=== PATIENT | male | born 1965 | race Caucasian/White ===

== ENCOUNTER 2017-11-06 08:11 | Day surgery (SDC) | payer OTHER ==
[~2017-11-06 08:11] MED LIST: CEFAZOLIN 2 GM/50 ML (PMX) 50 ML IVPB; ROCURONIUM 50 MG INJ; SOD CHLORIDE 0.9% 1,000 ML IV
[2017-11-06 09:38] LABS: ADD MAN DIFF? NO
[2017-11-06 09:39] LABS: BASOPHIL # 0.1 10^3/ul (0.0-0.1); BASOPHILS % 0.9 % (0.0-2.0); EOSINOPHILS # 0.2 10^3/ul (0.0-0.5); EOSINOPHILS % 2.3 % (0.0-7.0); HEMATOCRIT 42.5 % (42.0-52.0); HEMOGLOBIN 14.4 g/dl (14.0-18.0); LYMPHOCYTES # 2.9 10^3/ul (0.8-2.9); LYMPHOCYTES % 41.4 % (15.0-51.0); MEAN CORPUSCULAR HEMOGLOBIN 29.7 pg (29.0-33.0); MEAN CORPUSCULAR HGB CONC 33.9 g/dl (32.0-37.0); MEAN CORPUSCULAR VOLUME 87.6 fl (82.0-101.0); MONOCYTE # 0.6 10^3/ul (0.3-0.9); NEUTROPHIL # 3.2 10^3/ul (1.6-7.5); NEUTROPHILS % 46.7 % (39.0-77.0); PLATELET COUNT 230 10^3/UL (140-415); RED BLOOD COUNT 4.85 10^6/ul (4.70-6.10); RED CELL DISTRIBUTION WIDTH 12.8 % (11.5-14.5)
[2017-11-06 09:39] LABS: WHITE BLOOD COUNT 6.9 10^3/ul (4.8-10.8)
[2017-11-06 09:58] LABS: INR 1.22; PROTIME 15.6 Sec (11.9-14.9); PT RATIO 1.2
[2017-11-06 10:02] LABS: ALANINE AMINOTRANSFERASE 90 IU/L (13-69); ALBUMIN/GLOBULIN RATIO 1.17; ALKALINE PHOSPHATASE 49 IU/L (42-121); ANION GAP 11 (8-16); ASPARTATE AMINO TRANSFERASE 35 IU/L (15-46); BILIRUBIN,INDIRECT 0.4 mg/dl (0-1.1); BILIRUBIN,TOTAL 0.4 mg/dl (0.2-1.3); BLOOD UREA NITROGEN 20 mg/dl (7-20); CALCIUM 9.2 mg/dl (8.4-10.2); CARBON DIOXIDE 29 mmol/L (21-31); CHLORIDE 104 mmol/L (97-110); CREATININE 0.67 mg/dl (0.61-1.24); GLUCOSE 99 mg/dl (70-220); PARTIAL THROMBOPLASTIN TIME 47.9 Sec (25.0-35.0); POTASSIUM 4.6 mmol/L (3.5-5.1); SODIUM 139 mmol/L (135-144); TOTAL PROTEIN 7.4 g/dl (6.1-8.1)
[2017-11-06] MEDS ORDERED: BUPIVACAINE 0.25% (MPF) 30 ML INJ (10:53)
[2017-11-06] MEDS ORDERED: MIDAZOLAM 1 MG/ML 2 ML INJ (11:05)
[2017-11-06] MEDS: POLYMYXIN/BACITRACIN 1L IRRIG (11:34)
[2017-11-06] MEDS: BUPIVACAINE 0.25% (MPF) 30 ML INJ (11:35)
[2017-11-06] MEDS ORDERED: PROPOFOL 20 ML (12:06)
[2017-11-06] MEDS ORDERED: LIDOCAINE 2% (SDV) 5 ML INJ (12:06)
[2017-11-06] MEDS ORDERED: CEFAZOLIN 1 GM INJ (12:06)
[2017-11-06] MEDS ORDERED: GLYCOPYRROLATE 0.4 MG INJ (12:07)
[2017-11-06] MEDS ORDERED: NEOSTIGMINE 3 MG/3 ML SYRINGE (12:07)
[2017-11-06] MEDS ORDERED: ONDANSETRON 4 MG INJ (12:09)
[2017-11-06] MEDS ORDERED: MEPERIDINE 25 MG INJ IV (12:30)
[2017-11-06] MEDS ORDERED: LABETALOL HCL 20MG INJ IV (12:30)
[2017-11-06] MEDS ORDERED: hydrALAzine 20 MG INJ IV (12:30)
[2017-11-06] MEDS ORDERED: DIPHENHYDRAMINE 50 MG INJ IV (12:30)
[2017-11-06] MEDS ORDERED: HYDROmorphONE 1 MG/5 ML IV SYRINGE IV (12:32)
[2017-11-06] MEDS: HYDROmorphONE 1 MG/5 ML IV SYRINGE IV ×3 (12:35→12:46)
[2017-11-06] MEDS: HYDROCODONE/APAP (5/325) TAB PO (12:51)
[2017-11-06] MEDS: ONDANSETRON 4 MG INJ IV (12:52)
[2017-11-06] MEDS: FENTAnyl 50 MCG/ML VIAL IV ×2 (12:56→13:02)
== END 2017-11-06 14:37 | disposition home or self-care (01) ==
LOC: SDS 08:11
DX: K40.91 Unilateral inguinal hernia, without obstruction or gangrene, recurrent (principal); N43.3 Hydrocele, unspecified; I10 Essential (primary) hypertension
CPT/HCPCS: 49521; 71045; 80053; 85025; 85610; 85730; 88302; 93005

== ENCOUNTER 2017-11-16 21:36 | Emergency (ER) | payer OTHER | END 2017-11-16 22:31 | disposition home or self-care (01) | LOC: FTE 21:36 | DX: Z48.01 Encounter for change or removal of surgical wound dressing (principal) | CPT/HCPCS: 99281; Z7502 ==

== ENCOUNTER 2018-05-29 01:34 | Inpatient (IN) | payer OTHER ==
[~2018-05-29 01:34] MED LIST changes: -CEFAZOLIN 2 GM/50 ML (PMX) 50 ML IVPB; -ROCURONIUM 50 MG INJ; -SOD CHLORIDE 0.9% 1,000 ML IV; +VANCOMYCIN 1 GM 250 ML IVPB
[2018-05-29] MEDS: HYDROCODONE/APAP (5/325) TAB PO ×4 (03:22→19:57)
[2018-05-29] MEDS ORDERED: NACL 0.9% 3 ML SYG IV (03:30)
[2018-05-29] MEDS ORDERED: ONDANSETRON 4 MG INJ IV (03:30)
[2018-05-29] MEDS: SOD CHLORIDE 0.9% 1,000 ML IV ×3 (03:34→17:57)
[2018-05-29 05:14] LABS: ADD MAN DIFF? NO
[2018-05-29 05:15] LABS: WHITE BLOOD COUNT 9.3 10^3/ul (4.8-10.8)
[2018-05-29 05:15] LABS: BASOPHILS % 0.4 % (0.0-2.0); EOSINOPHILS # 0.1 10^3/ul (0.0-0.5); EOSINOPHILS % 1.5 % (0.0-7.0); HEMATOCRIT 39.2 % (42.0-52.0); HEMOGLOBIN 13.1 g/dl (14.0-18.0); LYMPHOCYTES # 1.2 10^3/ul (0.8-2.9); LYMPHOCYTES % 13.1 % (15.0-51.0); MEAN CORPUSCULAR HEMOGLOBIN 28.5 pg (29.0-33.0); MEAN CORPUSCULAR HGB CONC 33.4 g/dl (32.0-37.0); MEAN CORPUSCULAR VOLUME 85.2 fl (82.0-101.0); MEAN PLATELET VOLUME 9.1 fl (7.4-10.4); MONOCYTE # 0.8 10^3/ul (0.3-0.9); MONOCYTES % 8.7 % (0.0-11.0); NEUTROPHILS % 75.8 % (39.0-77.0); PLATELET COUNT 200 10^3/UL (140-415); RED CELL DISTRIBUTION WIDTH 12.5 % (11.5-14.5)
[2018-05-29 05:51] LABS: ALANINE AMINOTRANSFERASE 16 IU/L (13-69); ALBUMIN 3.2 g/dl (3.3-4.9); ALBUMIN/GLOBULIN RATIO 1.06; ALKALINE PHOSPHATASE 69 IU/L (42-121); ANION GAP 7 (5-13); ASPARTATE AMINO TRANSFERASE 13 IU/L (15-46); BILIRUBIN,INDIRECT 0.3 mg/dl (0-1.1); BILIRUBIN,TOTAL 0.3 mg/dl (0.2-1.3); BLOOD UREA NITROGEN 19 mg/dl (7-20); CALCIUM 8.1 mg/dl (8.4-10.2); CARBON DIOXIDE 26 mmol/L (21-31); CHLORIDE 99 mmol/L (97-110); Estimated GFR > 60 mL/min (>60); GLUCOSE 169 mg/dl (70-220); MAGNESIUM 1.9 mg/dl (1.7-2.5); PHOSPHORUS 3.4 mg/dl (2.5-4.9); POTASSIUM 3.9 mmol/L (3.5-5.1); SODIUM 132 mmol/L (135-144); TOTAL PROTEIN 6.2 g/dl (6.1-8.1)
[2018-05-29] MEDS ORDERED: VANCOMYCIN IV PER PHARMACY XX (07:30)
[2018-05-29] MEDS: NICOTINE (21 MG/24 HR) PATCH TRANSDERM (08:36)
[2018-05-29] MEDS: HEPARIN 5,000 UNIT/1 ML VIAL SC ×2 (08:38→20:00)
[2018-05-29] MEDS: LISINOPRIL 10 MG TAB PO (08:38)
[2018-05-29] MEDS: CEFEPIME 1GM/50 ML (PMX) 50 ML IVPB ×2 (08:38→19:59)
[2018-05-29] MEDS: VANCOMYCIN HCL 1.5 GM in SOD CHLORIDE 0.9% 250 ML IVPB (10:16)
[2018-05-29] MEDS: ACETAMINOPHEN 325 MG TAB PO (12:13)
[2018-05-29] MEDS: VANCOMYCIN 1 GM 250 ML IVPB (23:07)
[2018-05-29] MEDS: MAGNESIUM HYDROXIDE 30ML CUP PO (23:07)
[2018-05-30] MEDS: HYDROCODONE/APAP (5/325) TAB PO ×2 (04:42→21:39)
[2018-05-30] MEDS: SOD CHLORIDE 0.9% 1,000 ML IV ×2 (05:03→17:33)
[2018-05-30 05:22] LABS: ADD MAN DIFF? NO
[2018-05-30 05:33] LABS: WHITE BLOOD COUNT 9.4 10^3/ul (4.8-10.8)
[2018-05-30 05:33] LABS: BASOPHIL # 0.1 10^3/ul (0.0-0.1); BASOPHILS % 0.7 % (0.0-2.0); EOSINOPHILS # 0.1 10^3/ul (0.0-0.5); EOSINOPHILS % 1.5 % (0.0-7.0); HEMATOCRIT 41.8 % (42.0-52.0); HEMOGLOBIN 13.7 g/dl (14.0-18.0); LYMPHOCYTES # 1.7 10^3/ul (0.8-2.9); LYMPHOCYTES % 17.7 % (15.0-51.0); MEAN CORPUSCULAR HEMOGLOBIN 28.2 pg (29.0-33.0); MEAN CORPUSCULAR HGB CONC 32.8 g/dl (32.0-37.0); MEAN PLATELET VOLUME 9.3 fl (7.4-10.4); MONOCYTES % 10.8 % (0.0-11.0); NEUTROPHIL # 6.4 10^3/ul (1.6-7.5); NEUTROPHILS % 68.4 % (39.0-77.0); PLATELET COUNT 245 10^3/UL (140-415); RED BLOOD COUNT 4.86 10^6/ul (4.70-6.10); RED CELL DISTRIBUTION WIDTH 12.9 % (11.5-14.5)
[2018-05-30 06:00] LABS: ANION GAP 7 (5-13); BLOOD UREA NITROGEN 15 mg/dl (7-20); CALCIUM 8.5 mg/dl (8.4-10.2); CARBON DIOXIDE 27 mmol/L (21-31); CHLORIDE 99 mmol/L (97-110); CREATININE 0.63 mg/dl (0.61-1.24); Estimated GFR > 60 mL/min (>60); GLUCOSE 103 mg/dl (70-220); MAGNESIUM 2.1 mg/dl (1.7-2.5); PHOSPHORUS 3.8 mg/dl (2.5-4.9); SODIUM 133 mmol/L (135-144)
[2018-05-30] MEDS: HEPARIN 5,000 UNIT/1 ML VIAL SC ×2 (08:50→21:07)
[2018-05-30] MEDS: CEFEPIME 1GM/50 ML (PMX) 50 ML IVPB ×2 (08:52→21:06)
[2018-05-30] MEDS: LISINOPRIL 10 MG TAB PO (08:52)
[2018-05-30] MEDS: NICOTINE (21 MG/24 HR) PATCH TRANSDERM (08:53)
[2018-05-30] MEDS: MAGNESIUM HYDROXIDE 30ML CUP PO (09:21)
[2018-05-30] MEDS: VANCOMYCIN 1 GM 250 ML IVPB (11:41)
[2018-05-30] MEDS: KETOROLAC 30 MG INJ IV (11:58)
[2018-05-30] MEDS: LACTULOSE 30ML CUP PO (13:21)
[2018-05-30] MEDS: DOCUSATE SODIUM 100 MG CAP PO ×2 (13:21→21:06)
[2018-05-30 23:50] LABS: VANCOMYCIN,TROUGH 5.7 ug/ml (10.0-20.0)
[2018-05-31] MEDS: VANCOMYCIN 1 GM 250 ML IVPB ×3 (00:13→18:46)
[2018-05-31 07:23] LABS: ADD MAN DIFF? NO
[2018-05-31 07:29] LABS: WHITE BLOOD COUNT 9.6 10^3/ul (4.8-10.8)
[2018-05-31 07:29] LABS: BASOPHIL # 0.1 10^3/ul (0.0-0.1); BASOPHILS % 0.6 % (0.0-2.0); EOSINOPHILS # 0.2 10^3/ul (0.0-0.5); EOSINOPHILS % 1.8 % (0.0-7.0); HEMATOCRIT 39.9 % (42.0-52.0); HEMOGLOBIN 13.2 g/dl (14.0-18.0); LYMPHOCYTES # 1.5 10^3/ul (0.8-2.9); LYMPHOCYTES % 15.2 % (15.0-51.0); MEAN CORPUSCULAR HEMOGLOBIN 28.2 pg (29.0-33.0); MEAN CORPUSCULAR HGB CONC 33.1 g/dl (32.0-37.0); MEAN CORPUSCULAR VOLUME 85.3 fl (82.0-101.0); MEAN PLATELET VOLUME 9.1 fl (7.4-10.4); MONOCYTE # 0.8 10^3/ul (0.3-0.9); MONOCYTES % 8.2 % (0.0-11.0); NEUTROPHILS % 73.1 % (39.0-77.0); PLATELET COUNT 287 10^3/UL (140-415); RED BLOOD COUNT 4.68 10^6/ul (4.70-6.10); RED CELL DISTRIBUTION WIDTH 12.9 % (11.5-14.5)
[2018-05-31 07:59] LABS: ANION GAP 8 (5-13); BLOOD UREA NITROGEN 16 mg/dl (7-20); CALCIUM 8.5 mg/dl (8.4-10.2); CARBON DIOXIDE 24 mmol/L (21-31); CHLORIDE 103 mmol/L (97-110); CREATININE 0.57 mg/dl (0.61-1.24); Estimated GFR > 60 mL/min (>60); GLUCOSE 118 mg/dl (70-220); MAGNESIUM 2.1 mg/dl (1.7-2.5); PHOSPHORUS 3.9 mg/dl (2.5-4.9); POTASSIUM 4.5 mmol/L (3.5-5.1); SODIUM 135 mmol/L (135-144)
[2018-05-31] MEDS: NICOTINE (21 MG/24 HR) PATCH TRANSDERM (08:18)
[2018-05-31] MEDS: LISINOPRIL 10 MG TAB PO (08:19)
[2018-05-31] MEDS: DOCUSATE SODIUM 100 MG CAP PO (08:19)
[2018-05-31] MEDS: HEPARIN 5,000 UNIT/1 ML VIAL SC ×2 (08:20→21:23)
[2018-05-31] MEDS: CEFEPIME 1GM/50 ML (PMX) 50 ML IVPB ×2 (08:21→21:22)
[2018-05-31] MEDS: HYDROCODONE/APAP (5/325) TAB PO ×2 (09:28→18:55)
[2018-05-31] MEDS: SENNA/DOCUSATE NA (8.6MG/50MG) TAB PO (21:22)
[2018-06-01] MEDS: VANCOMYCIN 1 GM 250 ML IVPB ×3 (02:08→18:00)
[2018-06-01] MEDS: HYDROCODONE/APAP (5/325) TAB PO ×2 (04:37→12:49)
[2018-06-01] MEDS: LISINOPRIL 10 MG TAB PO (08:54)
[2018-06-01] MEDS: SENNA/DOCUSATE NA (8.6MG/50MG) TAB PO (08:54)
[2018-06-01] MEDS: CEFEPIME 1GM/50 ML (PMX) 50 ML IVPB (08:54)
[2018-06-01] MEDS: NICOTINE (21 MG/24 HR) PATCH TRANSDERM (08:54)
[2018-06-01] MEDS: HEPARIN 5,000 UNIT/1 ML VIAL SC (08:56)
== END 2018-06-01 18:12 | disposition home or self-care (01) | DRG 603 ==
LOC: PP2 01:34
DX: L03.115 Cellulitis of right lower limb (principal); F15.10 Other stimulant abuse, uncomplicated; I10 Essential (primary) hypertension; L40.9 Psoriasis, unspecified; Z72.0 Tobacco use
CPT/HCPCS: 80048; 80053; 80202; 83735; 84100; 85025; 87040; 87081; 93306; 97116; 97162; 97166